=== PATIENT | female | born 1965 | race Hispanic/Latino ===

== ENCOUNTER → 2021-04-28 | Outpatient (CLI) | payer OTHER ==
[~2021-04-28] MED LIST: ISOS10TA8 PO; METO25TA6 PO
== END | disposition home or self-care (01) ==
LOC: RAH 12:17
PROVIDERS: ATTEND Family Medicine
DX: Z12.31 Encounter for screening mammogram for malignant neoplasm of breast (principal)
CPT/HCPCS: 77067